=== PATIENT | male | born 1985 | race Caucasian/White ===

== ENCOUNTER 2017-09-01 12:46 | Day surgery (SDC) | payer BC ==
[~2017-09-01] VITALS: Ht 190.5 cm; Wt 106.0 kg
[~2017-09-01 12:46] MED LIST: LEVAQUIN 750MG750 M1 PO; NO HOME MEDICATIONS
[2017-09-01 13:14] VITALS: BP 137/88; PULSE 93; TEMP 98
[2017-09-01 13:23] LABS: HEMATOCRIT 41.5 % (42.0-52.0); HEMOGLOBIN 13.9 g/dl (13.5-18.0); MEAN CELL VOLUME 91 fl (80.0-100.0); MEAN CORPUSCULAR HEMOGLOBIN 31 pg (27.0-31.0); MEAN CORPUSCULAR HGB CONC 34 g/dl (33.0-37.0); MEAN PLATELET VOLUME 9.6 fl (7.4-10.4); PLATELET COUNT 399 K/mm3 (130-400); RED BLOOD COUNT 4.55 M/mm3 (4.20-5.60); REDCELL DISTRIBUTION WIDTH-CV 11.4 % (11.5-14.5)
[2017-09-01] MEDS ORDERED: AMOXICILLIN 8751 TAB PO (13:26)
[2017-09-01 13:33] LABS: ALBUMIN 4.5 gm/dL (3.5-5.0); BILIRUBIN,TOTAL 0.3 mg/dL (0.0-1.0); CALCIUM 9.3 mg/dL (8.4-10.2); CREATININE, serum 0.88 mg/dL (0.66-1.25); POTASSIUM 3.8 mmol/L (3.4-5.0); TOTAL PROTEIN 7.9 gm/dL (6.4-8.2)
[2017-09-01 13:39] LABS: BAND 4 % (0-10); BASOPHIL 1 % (0-2); EOSINOPHIL 1 % (0-4); LYMPHOCYTE 46 % (20.0-51.0); NEUTROPHILS 46 % (42.0-75.2); PLATELET ESTIMATE INCREASED (NORMAL)
[2017-09-01 13:41] LABS: STOMATOCYTE 1+
[2017-09-01 18:00] VITALS: BP 123/89; PULSE 54; TEMP 98
[2017-09-01 18:30] VITALS: BP 117/70; PULSE 58
[2017-09-01 18:45] VITALS: BP 125/82; PULSE 55
[2017-09-01 19:45] VITALS: BP 123/89; PULSE 52; TEMP 98
[2017-09-01 20:45] VITALS: BP 117/70; PULSE 52
== END 2017-09-01 20:45 | disposition home or self-care (01) ==
LOC: SDCO 12:46 → SURG 17:20 → SDCO 20:45
PROVIDERS: Surgery
DX: K80.12 Calculus of gallbladder with acute and chronic cholecystitis without obstruction (principal); F17.220 Nicotine dependence, chewing tobacco, uncomplicated
CPT/HCPCS: OP; J0690; J1100; J1885; J2175; J2405; J2550; J2704; J3010; J7120